=== PATIENT | male | born 1960 | race Caucasian/White ===

== ENCOUNTER 2016-09-14 16:49 | Inpatient (IN) | payer OTHER ==
[~2016-09-14] VITALS: Ht 175.3 cm; Wt 78.5 kg
[2016-09-14 17:27] LABS: HEMATOCRIT 44.5 % (38.0-50.0); MCH 31.4 PG (29.0-34.0); MCHC 34.8 G/DL (30.0-36.0); MCV 90.3 FL (86-99); MEAN PLAT.VOLUME 9.4 uM^3 (9.0-12.4); PLATELET COUNT 285 K/uL (156-360); RBC DIS.WIDTH-CV 13.3 % (11.8-14.6); RED BLOOD COUNT 4.93 M/uL (4.00-5.50); WHITE BLOOD COUNT 13.8 K/uL (4.1-10.2)
[2016-09-14 17:34] LABS: CHLORIDE 94 mEq/L (99-109); POTASSIUM 4.6 mEq/L (3.7-5.4); SODIUM 131 mEq/L (136-147)
[2016-09-14 17:37] LABS: GLUCOSE 175 mg/dL (70-99)
[2016-09-14 17:38] LABS: ANION GAP 15 MEQ/L (2-14)
[2016-09-14 17:39] LABS: TOTAL BILIRUBIN 0.9 mg/dL (0.0-1.0)
[2016-09-14 17:40] LABS: ALKALINE PHOSPHATASE 63 IU/L (3-129); GFR ESTIMATE (CALCULATED) > 59 mL/min/
[2016-09-14 17:41] LABS: UREA NITROGEN (BUN) 10 mg/dL (9-23)
[2016-09-14 17:50] LABS: TROP-I INTERPRETATION NEGATIVE; TROPONIN-I < 0.01 ng/mL (0.0-0.30)
[2016-09-14 17:56] LABS: LIPASE 3131 U/L (1.0-51.0)
[2016-09-14 18:13] LABS: AMYLASE 1091 IU/L (1-118)
[2016-09-14 21:06] LABS: ADD MIUA? YES; BILIRUBIN NEGATIVE; BLOOD MODERATE; COLOR YELLOW ((YELLOW)); GLUCOSE (STRIP) 150; KETONES 5; LEUKOCYTES NEGATIVE; NITRITE NEGATIVE; PROTEIN (STRIP) 100; SPECIFIC GRAVITY 1.025 (1.000-1.030); UROBILINOGEN 0.2 MG/DL (0.2-1.0)
[2016-09-14 21:28] LABS: BACTERIA RARE /HPF; EPITHELIAL CELLS RARE /HPF; HYALINE CASTS 15-20 /LPF; MUCUS TRACE /LPF; RED BLOOD CELLS 0-5 /HPF (0-5); UCUL ADDED? NO; WHITE BLOOD CELLS 0-5 /HPF (0-5)
[2016-09-14 23:52] LABS: TRIGLYCERIDES 147 MG/DL (Normal: <150)
[2016-09-15] VITALS (7 sets, daily range): BP systolic 118–139; BP diastolic 73–96
[2016-09-15 00:29] LABS: C-REACTIVE PROTEIN 74.5 MG/L (0-10)
[2016-09-15 07:26] LABS: EOSINOPHIL (%) 0 % (0-5); HEMATOCRIT 45.2 % (38.0-50.0); IMMATURE GRANULOCYTE (%) 0.2 % (0.0-0.7); LYMPHOCYTE COUNT 0.8 K/uL (1.0-2.8); MCH 32.4 PG (29.0-34.0); MCHC 35.2 G/DL (30.0-36.0); MCV 92.2 FL (86-99); MEAN PLAT.VOLUME 10.7 uM^3 (9.0-12.4); MONOCYTE (%) 6.7 % (3-12); MONOCYTE COUNT 1.1 K/uL (0-0.8); NEUTROPHIL COUNT 13.8 K/uL (1.8-6.4); PLATELET COUNT 285 K/uL (156-360); RBC DIS.WIDTH-CV 13.4 % (11.8-14.6); RBC DIS.WIDTH-SD 45.3 % (39-53); WHITE BLOOD COUNT 15.7 K/uL (4.1-10.2)
[2016-09-15 07:39] LABS: ALKALINE PHOSPHATASE 39 IU/L (3-129); ANION GAP 10 MEQ/L (2-14); CHLORIDE 100 MEQ/L (99-109); GFR ESTIMATE (CALCULATED) > 59 mL/min/; GLUCOSE 136 mg/dL (70-99); POTASSIUM 4.6 MEQ/L (3.7-5.4); SAMPLE HEMOLYSIS CHECK 0; SAMPLE ICTERIC CHECK 0; SAMPLE LIPEMIA CHECK 0; SODIUM 132 MEQ/L (136-147); TOTAL BILIRUBIN 0.9 MG/DL (0.0-1.0); UREA NITROGEN (BUN) 12 mg/dL (9-23)
[2016-09-15 11:27] LABS: POINT-OF-CARE METER ID UU14174225
[2016-09-15 16:40] LABS: POINT-OF-CARE METER ID UU14174225
[2016-09-16 04:04] VITALS: BP 133/86
[2016-09-16 07:42] VITALS: BP 151/94
[2016-09-16 08:28] LABS: HEMATOCRIT 39.8 % (38.0-50.0); MCHC 35.4 G/DL (30.0-36.0); MCV 93.2 FL (86-99); MEAN PLAT.VOLUME 10.4 uM^3 (9.0-12.4); PLATELET COUNT 240 K/uL (156-360); RBC DIS.WIDTH-CV 13.6 % (11.8-14.6); RED BLOOD COUNT 4.27 M/uL (4.00-5.50); WHITE BLOOD COUNT 15.5 K/uL (4.1-10.2)
[2016-09-16 08:52] LABS: ANION GAP 11 MEQ/L (2-14); CHLORIDE 105 MEQ/L (99-109); GFR ESTIMATE (CALCULATED) > 59 mL/min/; GLUCOSE 120 mg/dL (70-99); POTASSIUM 4.2 MEQ/L (3.7-5.4); SAMPLE HEMOLYSIS CHECK 0; SAMPLE ICTERIC CHECK 0; SAMPLE LIPEMIA CHECK 0; SODIUM 137 MEQ/L (136-147); UREA NITROGEN (BUN) 13 mg/dL (9-23)
[2016-09-16 10:55] LABS: MAGNESIUM 1.6 mg/dl (1.3-2.7)
[2016-09-16 11:52] VITALS: BP 138/92
[2016-09-16 12:38] LABS: POINT-OF-CARE METER ID UU14174225
[2016-09-16 16:00] VITALS: BP 136/95
[2016-09-16 17:43] LABS: POINT-OF-CARE METER ID UU14174225
[2016-09-16 19:54] VITALS: BP 132/80
[2016-09-16 21:45] LABS: POINT-OF-CARE METER ID UU14174225; POINT-OF-CARE USER ID 603211116
[2016-09-16 23:51] VITALS: BP 142/89
[2016-09-17 04:29] VITALS: BP 142/86
[2016-09-17 08:33] VITALS: BP 142/83
[2016-09-17 08:37] LABS: POINT-OF-CARE METER ID UU14174225; POINT-OF-CARE USER ID STWAMT51
[2016-09-17 09:39] LABS: EOSINOPHIL (%) 0.4 % (0-5); EOSINOPHIL COUNT 0.1 K/uL (0-0.3); HEMATOCRIT 36.5 % (38.0-50.0); IMMATURE GRANULOCYTE (%) 0.6 % (0.0-0.7); IMMATURE GRANULOCYTE COUNT 0.1 K/uL; MCH 30.8 PG (29.0-34.0); MCHC 32.9 G/DL (30.0-36.0); MCV 93.8 FL (86-99); MEAN PLAT.VOLUME 10.3 uM^3 (9.0-12.4); MONOCYTE (%) 8.9 % (3-12); MONOCYTE COUNT 1.4 K/uL (0-0.8); NEUTROPHIL (%) 83.9 % (45-76); NEUTROPHIL COUNT 13.3 K/uL (1.8-6.4); PLATELET COUNT 252 K/uL (156-360); RBC DIS.WIDTH-CV 13.4 % (11.8-14.6); RBC DIS.WIDTH-SD 46.1 % (39-53); RED BLOOD COUNT 3.89 M/uL (4.00-5.50); WHITE BLOOD COUNT 15.8 K/uL (4.1-10.2)
[2016-09-17 10:47] LABS: ALKALINE PHOSPHATASE 48 IU/L (3-129); ANION GAP 10 MEQ/L (2-14); CHLORIDE 100 MEQ/L (99-109); GFR ESTIMATE (CALCULATED) > 59 mL/min/; GLUCOSE 133 mg/dL (70-99); SAMPLE HEMOLYSIS CHECK 0; SAMPLE ICTERIC CHECK 0; SAMPLE LIPEMIA CHECK 0; SODIUM 136 MEQ/L (136-147); UREA NITROGEN (BUN) 7 mg/dL (9-23)
[2016-09-17 10:51] LABS: TOTAL BILIRUBIN 1.1 MG/DL (0.0-1.0)
[2016-09-17 12:20] LABS: POINT-OF-CARE USER ID STWAMT51
[2016-09-17 12:40] VITALS: BP 137/88
[2016-09-17 15:06] VITALS: BP 132/84
[2016-09-17 19:58] VITALS: BP 141/81
[2016-09-17 21:51] LABS: POINT-OF-CARE METER ID UU14188625
[2016-09-17 23:48] VITALS: BP 127/69
[2016-09-18 03:45] VITALS: BP 134/78
[2016-09-18 07:05] LABS: HEMATOCRIT 32.8 % (38.0-50.0); MCHC 34.1 G/DL (30.0-36.0); MCV 93.7 FL (86-99); MEAN PLAT.VOLUME 10.3 uM^3 (9.0-12.4); NRBC (%) 0.2 /100 WBC (0-0); PLATELET COUNT 233 K/uL (156-360); RBC DIS.WIDTH-CV 13.3 % (11.8-14.6); RBC DIS.WIDTH-SD 45.8 % (39-53); WHITE BLOOD COUNT 15.7 K/uL (4.1-10.2)
[2016-09-18 07:31] LABS: ANION GAP 10 MEQ/L (2-14); CHLORIDE 101 MEQ/L (99-109); GFR ESTIMATE (CALCULATED) > 59 mL/min/; GLUCOSE 118 mg/dL (70-99); POTASSIUM 3.4 MEQ/L (3.7-5.4); SAMPLE HEMOLYSIS CHECK 0; SAMPLE ICTERIC CHECK 0; SAMPLE LIPEMIA CHECK 0; SODIUM 136 MEQ/L (136-147); UREA NITROGEN (BUN) 5 mg/dL (9-23)
[2016-09-18 07:33] LABS: EOSINOPHIL (%) 0.6 % (0-5); EOSINOPHIL COUNT 0.1 K/uL (0-0.3); IMMATURE GRANULOCYTE (%) 1.1 % (0.0-0.7); IMMATURE GRANULOCYTE COUNT 0.2 K/uL; LYMPHOCYTE COUNT 1.5 K/uL (1.0-2.8); MONOCYTE (%) 13.9 % (3-12); MONOCYTE COUNT 2.2 K/uL (0-0.8); NEUTROPHIL (%) 74.9 % (45-76); NEUTROPHIL COUNT 11.8 K/uL (1.8-6.4)
[2016-09-18 08:00] VITALS: BP 125/73
[2016-09-18 11:37] VITALS: BP 128/74
[2016-09-18] MEDS ORDERED: FOLIC ACID1 MG PO (13:27)
[2016-09-18] MEDS ORDERED: Thiamine,Vitamin B1 PO (13:27)
== END 2016-09-18 14:13 | disposition home or self-care (01) | DRG 439 ==
LOC: EME → EDBD 16:49 → EME 16:49 → 5SOUTH 22:15 → EDOF 22:15 → 5SOUTH 23:44
PROVIDERS: Hospitalist; Internal Medicine; Physician Assistant; Student in an Organized Health Care Education/Training Program
DX: K85.20 Alcohol induced acute pancreatitis without necrosis or infection (principal); E87.1 Hypo-osmolality and hyponatremia; F10.10 Alcohol abuse, uncomplicated; E11.9 Type 2 diabetes mellitus without complications; K21.9 Gastro-esophageal reflux disease without esophagitis
CPT/HCPCS: 71020; 74176; 80048; 80053; 81003; 82150; 82150 91; 82948; 83690; 83735; 84100; 84478; 84484; 85025; 85027; 86140; 93005; 99281; 99285; C9113; J1170; J1644; J1815; J2270; J2405; J3010; J3411; J7030; J7050

== ENCOUNTER 2016-12-16 17:34 | Inpatient (IN) | payer OTHER ==
[~2016-12-16] VITALS: Ht 172.7 cm; Wt 71.7 kg
[~2016-12-16 17:34] MED LIST: FOLIC ACID1 MG PO; Thiamine,Vitamin B1 PO
[2016-12-16 18:24] LABS: HEMATOCRIT 48.5 % (38.0-50.0); MCH 29.1 PG (29.0-34.0); MCHC 33.8 G/DL (30.0-36.0); MCV 86.1 FL (86-99); MEAN PLAT.VOLUME 9.7 uM^3 (9.0-12.4); PLATELET COUNT 305 K/uL (156-360); RBC DIS.WIDTH-CV 13.7 % (11.8-14.6); RED BLOOD COUNT 5.63 M/uL (4.00-5.50); WHITE BLOOD COUNT 20.4 K/uL (4.1-10.2)
[2016-12-16 18:36] LABS: CHLORIDE 99 mEq/L (99-109); POTASSIUM 4.6 mEq/L (3.7-5.4); SODIUM 135 mEq/L (136-147)
[2016-12-16 18:38] LABS: GLUCOSE 173 mg/dL (70-99)
[2016-12-16 18:39] LABS: ANION GAP 13 MEQ/L (2-14)
[2016-12-16 18:40] LABS: TOTAL BILIRUBIN 0.9 mg/dL (0.0-1.0)
[2016-12-16 18:41] LABS: ALKALINE PHOSPHATASE 77 IU/L (3-129)
[2016-12-16 18:42] LABS: GFR ESTIMATE (CALCULATED) > 59 mL/min/
[2016-12-16 18:43] LABS: UREA NITROGEN (BUN) 16 mg/dL (9-23)
[2016-12-16 19:01] LABS: LIPASE > 1055 U/L (1.0-51.0)
[2016-12-16 19:11] LABS: ADD MIUA? YES; BILIRUBIN NEGATIVE; BLOOD MODERATE; COLOR YELLOW ((YELLOW)); GLUCOSE (STRIP) NEGATIVE; KETONES NEGATIVE; LEUKOCYTES NEGATIVE; NITRITE NEGATIVE; PROTEIN (STRIP) 100; SPECIFIC GRAVITY 1.027 (1.000-1.030); UROBILINOGEN 0.2 MG/DL (0.2-1.0)
[2016-12-16 19:28] LABS: BACTERIA RARE /HPF; EPITHELIAL CELLS 1+ /HPF; MUCUS TRACE /LPF; RED BLOOD CELLS 0-5 /HPF (0-5); UCUL ADDED? NO; WHITE BLOOD CELLS 0-5 /HPF (0-5)
[2016-12-16] MEDS ORDERED: FOLIC ACID1 MG PO (20:44)
[2016-12-16] MEDS ORDERED: THIAMINE HCL100 MG PO (20:44)
[2016-12-16] MEDS ORDERED: VOLTAREN 1% GE100 GM TP (20:45)
[2016-12-16] MEDS ORDERED: CALCIUM 600 +1 EA12 PO (20:45)
[2016-12-16] MEDS ORDERED: OMEPRAZOLE40 M1 PO (20:45)
[2016-12-17] VITALS (9 sets, daily range): BP systolic 127–166; BP diastolic 72–106
[2016-12-17 05:28] LABS: EOSINOPHIL (%) 0 % (0-5); HEMATOCRIT 41.9 % (38.0-50.0); IMMATURE GRANULOCYTE (%) 0.5 % (0.0-0.7); IMMATURE GRANULOCYTE COUNT 0.1 K/uL; INSTRUMENT ABS NEUTROPHIL CT 17.1 K/uL; LYMPHOCYTE COUNT 0.8 K/uL (1.0-2.8); MCH 29.4 PG (29.0-34.0); MCHC 34.6 G/DL (30.0-36.0); MEAN PLAT.VOLUME 9.7 uM^3 (9.0-12.4); MONOCYTE (%) 4.6 % (3-12); MONOCYTE COUNT 0.9 K/uL (0-0.8); NEUTROPHIL (%) 90.5 % (45-76); NEUTROPHIL COUNT 17.1 K/uL (1.8-6.4); PLATELET COUNT 275 K/uL (156-360); RBC DIS.WIDTH-CV 13.9 % (11.8-14.6); RBC DIS.WIDTH-SD 42.5 % (39-53); RED BLOOD COUNT 4.93 M/uL (4.00-5.50); WHITE BLOOD COUNT 18.9 K/uL (4.1-10.2)
[2016-12-17 05:53] LABS: ANION GAP 11 MEQ/L (2-14); CHLORIDE 101 MEQ/L (99-109); GFR ESTIMATE (CALCULATED) > 59 mL/min/; GLUCOSE 148 mg/dL (70-99); POTASSIUM 4.3 MEQ/L (3.7-5.4); SAMPLE HEMOLYSIS CHECK 0; SAMPLE ICTERIC CHECK 0; SAMPLE LIPEMIA CHECK 0; SODIUM 134 MEQ/L (136-147); UREA NITROGEN (BUN) 16 mg/dL (9-23)
[2016-12-18 03:31] VITALS: BP 140/76
[2016-12-18 06:15] LABS: HEMATOCRIT 36.3 % (38.0-50.0); MCH 29.5 PG (29.0-34.0); MCHC 33.6 G/DL (30.0-36.0); MCV 87.9 FL (86-99); MEAN PLAT.VOLUME 10.2 uM^3 (9.0-12.4); PLATELET COUNT 207 K/uL (156-360); RBC DIS.WIDTH-CV 14.3 % (11.8-14.6); RBC DIS.WIDTH-SD 45.2 % (39-53); RED BLOOD COUNT 4.13 M/uL (4.00-5.50); WHITE BLOOD COUNT 17.7 K/uL (4.1-10.2)
[2016-12-18 06:19] LABS: ALKALINE PHOSPHATASE 57 IU/L (3-129); ANION GAP 10 MEQ/L (2-14); C-REACTIVE PROTEIN 234.2 MG/L (0-10); CHLORIDE 96 MEQ/L (99-109); GFR ESTIMATE (CALCULATED) > 59 mL/min/; GLUCOSE 124 mg/dL (70-99); POTASSIUM 3.9 MEQ/L (3.7-5.4); SAMPLE HEMOLYSIS CHECK 0; SAMPLE ICTERIC CHECK 0; SAMPLE LIPEMIA CHECK 0; SODIUM 134 MEQ/L (136-147); TOTAL BILIRUBIN 1.1 MG/DL (0.0-1.0); UREA NITROGEN (BUN) 7 mg/dL (9-23)
[2016-12-18 06:33] LABS: LIPASE 492 U/L (1.0-51.0)
[2016-12-18 08:29] VITALS: BP 142/76
[2016-12-18 12:13] VITALS: BP 142/83
[2016-12-18 16:13] VITALS: BP 145/90
[2016-12-18 19:45] VITALS: BP 125/74
[2016-12-19 04:32] VITALS: BP 114/69
[2016-12-19 06:56] LABS: MAGNESIUM 1.9 mg/dl (1.3-2.7)
[2016-12-19 08:07] VITALS: BP 110/71
[2016-12-19 10:35] LABS: EOSINOPHIL (%) 0.8 % (0-5); EOSINOPHIL COUNT 0.1 K/uL (0-0.3); HEMATOCRIT 38.3 % (38.0-50.0); IMMATURE GRANULOCYTE (%) 0.6 % (0.0-0.7); IMMATURE GRANULOCYTE COUNT 0.1 K/uL; INSTRUMENT ABS NEUTROPHIL CT 11.6 K/uL; LYMPHOCYTE COUNT 1.3 K/uL (1.0-2.8); MCH 28.9 PG (29.0-34.0); MCHC 32.4 G/DL (30.0-36.0); MCV 89.3 FL (86-99); MEAN PLAT.VOLUME 10.2 uM^3 (9.0-12.4); MONOCYTE (%) 7.7 % (3-12); MONOCYTE COUNT 1.1 K/uL (0-0.8); NEUTROPHIL (%) 81.5 % (45-76); NEUTROPHIL COUNT 11.6 K/uL (1.8-6.4); PLATELET COUNT 224 K/uL (156-360); RBC DIS.WIDTH-CV 14.4 % (11.8-14.6); RBC DIS.WIDTH-SD 46.2 % (39-53); RED BLOOD COUNT 4.29 M/uL (4.00-5.50); WHITE BLOOD COUNT 14.2 K/uL (4.1-10.2)
[2016-12-19 10:47] LABS: CHLORIDE 101 mEq/L (99-109); POTASSIUM 3.5 mEq/L (3.7-5.4); SODIUM 137 mEq/L (136-147)
[2016-12-19 10:50] LABS: GLUCOSE 95 mg/dL (70-99)
[2016-12-19 10:51] LABS: ANION GAP 10 MEQ/L (2-14)
[2016-12-19 10:53] LABS: ALKALINE PHOSPHATASE 60 IU/L (3-129); GFR ESTIMATE (CALCULATED) > 59 mL/min/
[2016-12-19 10:54] LABS: UREA NITROGEN (BUN) 5 mg/dL (9-23)
[2016-12-19 11:33] VITALS: BP 107/59
[2016-12-19 11:49] LABS: C-REACTIVE PROTEIN 233.4 MG/L (0-10)
[2016-12-19 15:47] VITALS: BP 126/80
[2016-12-19 19:58] VITALS: BP 140/92
[2016-12-19 23:51] VITALS: BP 132/71
[2016-12-20 03:43] VITALS: BP 117/66
[2016-12-20 07:56] VITALS: BP 125/80
[2016-12-20 11:07] VITALS: BP 116/65
[2016-12-20] MEDS ORDERED: AMLODIPINE BESYL5 MG PO (11:25)
== END 2016-12-20 13:52 | disposition home or self-care (01) | DRG 439 ==
LOC: EXP 17:34 → EME 17:34 → EDOF 22:57 → 3EAST 22:57
PROVIDERS: Hospitalist; Internal Medicine; Physician Assistant
DX: K85.20 Alcohol induced acute pancreatitis without necrosis or infection (principal); K21.9 Gastro-esophageal reflux disease without esophagitis; E11.65 Type 2 diabetes mellitus with hyperglycemia; J44.9 Chronic obstructive pulmonary disease, unspecified; F10.20 Alcohol dependence, uncomplicated; J98.11 Atelectasis; Z87.891 Personal history of nicotine dependence
CPT/HCPCS: 71020; 74000; 74177; 80048; 80053; 81003; 83690; 83735; 84100; 85025; 85027; 86140; 87040; 87086; 99281; 99285; C9113; G0480; J1170; J1644; J2270; J2405; J3411; J3475; J7030; J7120

== ENCOUNTER 2017-12-28 13:49 | Inpatient (IN) | payer OTHER ==
[~2017-12-28] VITALS: Ht 175.3 cm; Wt 72.2 kg
[~2017-12-28 13:49] MED LIST changes: +AMLODIPINE BESYL5 MG PO; +CALCIUM 600 +1 EA12 PO; +OMEPRAZOLE40 M1 PO; +THIAMINE HCL100 MG PO; +VOLTAREN 1% GE100 GM TP
[2017-12-28 14:30] LABS: HEMATOCRIT 42.5 % (38.0-50.0); HEMOGLOBIN 15.1 G/DL (12.5-16.6); MCH 32.6 PG (29.0-34.0); MCHC 35.5 G/DL (30.0-36.0); MCV 91.8 FL (86-99); PLATELET COUNT 323 K/uL (156-360); RBC DIS.WIDTH-SD 47.4 % (39-53); RED BLOOD COUNT 4.63 M/uL (4.00-5.50); WHITE BLOOD COUNT 15.2 K/uL (4.1-10.2)
[2017-12-28 14:40] LABS: ALBUMIN 3.7 g/dL (3.2-4.8); CHLORIDE 93 mEq/L (99-109); POTASSIUM 5.7 mEq/L (3.7-5.4); SODIUM 132 mEq/L (136-147)
[2017-12-28 14:42] LABS: GLUCOSE 180 mg/dL (70-99)
[2017-12-28 14:43] LABS: TOTAL PROTEIN 8.7 g/dL (6.4-8.3)
[2017-12-28 14:44] LABS: TOTAL BILIRUBIN 0.4 mg/dL (0.0-1.0)
[2017-12-28 14:46] LABS: ALKALINE PHOSPHATASE 78 IU/L (3-129); GFR ESTIMATE (CALCULATED) > 59 mL/min/ (58.99-99999)
[2017-12-28 14:47] LABS: UREA NITROGEN (BUN) 14 mg/dL (9-23)
[2017-12-28 14:48] LABS: AST (GOT) 67 IU/L (2-34)
[2017-12-28 14:49] LABS: ALT (GPT) 43 IU/L (3-49)
[2017-12-28 14:50] LABS: LIPASE 723 U/L (1.0-51.0)
[2017-12-28 15:37] LABS: SERUM ETHYL ALCOHOL < 10 mg/dL
[2017-12-28 15:44] LABS: APPEARANCE CLEAR ((CLEAR)); BILIRUBIN NEGATIVE; BLOOD SMALL; COLOR YELLOW ((YELLOW)); GLUCOSE (STRIP) >=500; KETONES NEGATIVE; LEUKOCYTES NEGATIVE; NITRITE NEGATIVE; PROTEIN (STRIP) NEGATIVE; SPECIFIC GRAVITY 1.016 (1.000-1.030); UROBILINOGEN 0.2 MG/DL (0.2-1.0)
[2017-12-28 15:52] LABS: BACTERIA NONE SEEN /HPF; EPITHELIAL CELLS RARE /HPF; MUCUS TRACE /LPF; RED BLOOD CELLS 0-5 /HPF (0-5); UCUL ADDED? NO; WHITE BLOOD CELLS NONE SEEN /HPF (0-5)
[2017-12-28 18:00] VITALS: BP 155/89
[2017-12-28 19:27] VITALS: BP 144/82
[2017-12-28 23:42] VITALS: BP 137/73
[2017-12-29 03:37] VITALS: BP 117/69
[2017-12-29 05:52] LABS: HEMATOCRIT 41.4 % (38.0-50.0); HEMOGLOBIN 14.1 G/DL (12.5-16.6); MCHC 34.1 G/DL (30.0-36.0); PLATELET COUNT 290 K/uL (156-360); RBC DIS.WIDTH-CV 14.1 % (11.8-14.6); RBC DIS.WIDTH-SD 46.9 % (39-53); RED BLOOD COUNT 4.55 M/uL (4.00-5.50); WHITE BLOOD COUNT 9.9 K/uL (4.1-10.2)
[2017-12-29 06:42] LABS: ALBUMIN 2.8 G/DL (3.2-4.8); ALKALINE PHOSPHATASE 57 IU/L (3-129); ALT (GPT) 24 IU/L (3-49); AST (GOT) 28 IU/L (2-34); CHLORIDE 101 MEQ/L (99-109); GFR ESTIMATE (CALCULATED) > 59 mL/min/ (58.99-99999); GLUCOSE 136 mg/dL (70-99); LIPASE 916 U/L (1.0-51.0); POTASSIUM 4.5 MEQ/L (3.7-5.4); SODIUM 138 MEQ/L (136-147); TOTAL BILIRUBIN 1.1 MG/DL (0.0-1.0); TOTAL PROTEIN 5.8 G/DL (6.4-8.3); UREA NITROGEN (BUN) 7 mg/dL (9-23)
[2017-12-29 07:07] VITALS: BP 135/87
[2017-12-29 08:15] LABS: MAGNESIUM 2.1 mg/dl (1.3-2.7)
[2017-12-29 11:14] VITALS: BP 116/67
[2017-12-29 15:03] VITALS: BP 134/78
[2017-12-29 19:55] VITALS: BP 126/80
[2017-12-30] VITALS (7 sets, daily range): BP systolic 113–130; BP diastolic 68–81
[2017-12-30 05:16] LABS: BASOPHIL (%) 0.5 % (0-1); EOSINOPHIL (%) 1.4 % (0-5); EOSINOPHIL COUNT 0.1 K/uL (0-0.3); HEMATOCRIT 35.8 % (38.0-50.0); IMMATURE GRANULOCYTE (%) 0.1 % (0.0-0.7); LYMPHOCYTE (%) 19.3 % (15-42); LYMPHOCYTE COUNT 1.7 K/uL (1.0-2.8); MCH 31.2 PG (29.0-34.0); MCHC 33.2 G/DL (30.0-36.0); MCV 93.7 FL (86-99); MONOCYTE (%) 7.7 % (3-12); MONOCYTE COUNT 0.7 K/uL (0-0.8); NEUTROPHIL COUNT 6.2 K/uL (1.8-6.4); PLATELET COUNT 241 K/uL (156-360); RBC DIS.WIDTH-CV 14.6 % (11.8-14.6); RBC DIS.WIDTH-SD 50.4 % (39-53); RED BLOOD COUNT 3.82 M/uL (4.00-5.50); WHITE BLOOD COUNT 8.7 K/uL (4.1-10.2)
[2017-12-30 05:17] LABS: HEMOGLOBIN 11.9 G/DL (12.5-16.6)
[2017-12-30 05:50] LABS: ALBUMIN 2.4 G/DL (3.2-4.8); ALKALINE PHOSPHATASE 55 IU/L (3-129); ALT (GPT) 17 IU/L (3-49); AMYLASE 83 IU/L (1-118); CHLORIDE 105 MEQ/L (99-109); CREATININE 0.8 MG/DL (0.6-1.3); GFR ESTIMATE (CALCULATED) > 59 mL/min/ (58.99-99999); GLUCOSE 134 mg/dL (70-99); LIPASE 438 U/L (1.0-51.0); SODIUM 141 MEQ/L (136-147); UREA NITROGEN (BUN) 5 mg/dL (9-23)
[2017-12-30 05:54] LABS: AST (GOT) 14 IU/L (2-34); TOTAL BILIRUBIN 1.5 MG/DL (0.0-1.0); TOTAL PROTEIN 4.9 G/DL (6.4-8.3)
[2017-12-31 04:04] VITALS: BP 137/86
[2017-12-31 07:30] LABS: BASOPHIL (%) 0.9 % (0-1); BASOPHIL COUNT 0.1 K/uL (0-0.1); EOSINOPHIL (%) 3.8 % (0-5); EOSINOPHIL COUNT 0.3 K/uL (0-0.3); HEMATOCRIT 34.6 % (38.0-50.0); HEMOGLOBIN 11.5 G/DL (12.5-16.6); IMMATURE GRANULOCYTE (%) 0.3 % (0.0-0.7); LYMPHOCYTE (%) 22.4 % (15-42); LYMPHOCYTE COUNT 1.5 K/uL (1.0-2.8); MCH 31.7 PG (29.0-34.0); MCHC 33.2 G/DL (30.0-36.0); MCV 95.3 FL (86-99); MONOCYTE (%) 7.1 % (3-12); MONOCYTE COUNT 0.5 K/uL (0-0.8); NEUTROPHIL (%) 65.5 % (45-76); NEUTROPHIL COUNT 4.5 K/uL (1.8-6.4); PLATELET COUNT 250 K/uL (156-360); RBC DIS.WIDTH-CV 14.6 % (11.8-14.6); RBC DIS.WIDTH-SD 50.9 % (39-53); RED BLOOD COUNT 3.63 M/uL (4.00-5.50); WHITE BLOOD COUNT 6.8 K/uL (4.1-10.2)
[2017-12-31 07:54] VITALS: BP 137/87
[2017-12-31 08:03] LABS: ALBUMIN 2.9 G/DL (3.2-4.8); ALKALINE PHOSPHATASE 57 IU/L (3-129); ALT (GPT) 13 IU/L (3-49); AST (GOT) 10 IU/L (2-34); CHLORIDE 105 MEQ/L (99-109); CREATININE 0.7 MG/DL (0.6-1.3); GFR ESTIMATE (CALCULATED) > 59 mL/min/ (58.99-99999); GLUCOSE 149 mg/dL (70-99); POTASSIUM 3.7 MEQ/L (3.7-5.4); SODIUM 139 MEQ/L (136-147); UREA NITROGEN (BUN) 4 mg/dL (9-23)
[2017-12-31 08:04] LABS: TOTAL BILIRUBIN 1.1 MG/DL (0.0-1.0)
[2017-12-31 08:05] LABS: TOTAL PROTEIN 5.9 G/DL (6.4-8.3)
[2017-12-31 08:14] LABS: LIPASE 217 U/L (1.0-51.0)
[2017-12-31 08:15] LABS: AMYLASE 42 IU/L (1-118)
[2017-12-31 11:53] VITALS: BP 113/72
[2017-12-31] MEDS ORDERED: FOLIC ACID1 MG PO (12:15)
[2017-12-31] MEDS ORDERED: AMLODIPINE BESYL5 MG PO (12:15)
== END 2017-12-31 13:59 | disposition home or self-care (01) | DRG 440 ==
LOC: EME 13:49 → EDOF 16:05 → 5SOUTH 16:05 → ENRESERV 16:11 → 5SOUTH 17:56
PROVIDERS: Hospitalist; Internal Medicine Gastroenterology; Student in an Organized Health Care Education/Training Program
DX: K85.20 Alcohol induced acute pancreatitis without necrosis or infection (principal); E86.0 Dehydration; E87.5 Hyperkalemia; F10.20 Alcohol dependence, uncomplicated; I10 Essential (primary) hypertension; K21.9 Gastro-esophageal reflux disease without esophagitis; F17.200 Nicotine dependence, unspecified, uncomplicated; M19.90 Unspecified osteoarthritis, unspecified site
CPT/HCPCS: 74176; 80053; 81003; 82150; 82948; 83690; 83735; 84132 91; 85025; 85027; 93005; 99281; 99284; G0480; J0360; J1650; J1885; J3411; J3475; J7030; J7070; J7120